=== PATIENT | male | born 1990 | race Caucasian/White ===

== ENCOUNTER 2023-09-24 20:59 | Emergency (ER) | payer BC, OTHER ==
[2023-09-24 21:08] VITALS: TEMP 96.9; O2SAT 95
[2023-09-24] MEDS ORDERED: TORAdol 30 mg Injection ONE (21:28)
[2023-09-24] MEDS ORDERED: Augmentin 875-125 Tablet ONE (21:29)
[2023-09-24] MEDS: Augmentin 875-125 Tablet PO ONE (21:30)
[2023-09-24] MEDS: TORAdol 30 mg Injection IM ONE (21:30)
--- NOTE | 2023-09-24 22:08 | ERPHSYRPT ---
- History of Present Illness Time Seen by Provider: 09/24/23 21:05 Source: patient Exam Limitations: no limitations Patient Subjective Stated Complaint: Cut middle and ring finger with table saw while drinking. Triage Nursing Assessment: Pt arrived with laceration to right middle and ring finger. States was operating table saw around 2029 when he cut his fingers. Admitted to drinking "lots of alcohol" ( BEER). Physician History: Patient is a 32yo male presents to ED for evaluation of laceration to rt. 3rd and 4th digit. Patient reports that he lacerated his fingers while working on a table saw. Injury occurred just prior to arrival. No other injuries reported. Pain described as an ache that is well localized. No radiation Pain worse with movement and palpation. Pain improves with rest. Tetanus is UTD per patient. Patient reports that he was "drinking" ETOH. Patient otherwise feels well. He has no other c/o at this time. Timing/Duration: today Severity: moderate Modifying Factors: Improves With: nothing Associated Symptoms: denies symptoms Allergies/Adverse Reactions: No Known Drug Allergies Allergy (Unverified 09/24/23 21:21) Home Medications: ALPRAZolam [Alprazolam] 1 mg PO DAILY 09/24/23 [History] Nebivolol HCl 5 MG [Bystolic 5 MG] 1 tab PO DAILY 09/24/23 [History] Hx Tetanus, Diphtheria Vaccination/Date Given: Yes (6 years ago) Hx Influenza Vaccination/Date Given: No Hx Pneumococcal Vaccination/Date Given: No Immunizations Up to Date: No Travel Risk - International Travel Have you traveled outside of the country in past 3 weeks: No - Coronavirus Screening Are you exhibiting any of the following symptoms?: No Close contact with a COVID-19 positive Pt in past 14-21 Days: No - Vaccine Status Have you recieved a Covid-19 vaccination: No - Review of Systems Constitutional: No Symptoms, No Fever, No Chills Eyes: No Symptoms Ears, Nose, & Throat: No Symptoms Respiratory: No Symptoms, No Cough, No Dyspnea Cardiac: No Symptoms, No Chest Pain, No Edema, No Syncope Abdominal/Gastrointestinal: No Symptoms, No Abdominal Pain, No Nausea, No Vomiting, No Diarrhea Genitourinary Symptoms: No Symptoms, No Dysuria Musculoskeletal: No Symptoms, No Back Pain, No Neck Pain Skin: No Symptoms, No Rash Neurological: No Symptoms, No Dizziness, No Focal Weakness, No Sensory Changes Psychological: No Symptoms Endocrine: No Symptoms Hematologic/Lymphatic: No Symptoms Immunological/Allergic: No Symptoms All Other Systems: Reviewed and Negative - Past Medical History Pertinent Past Medical History: Yes Cardiac History: Hypertension Psycho-Social History: Anxiety - Past Surgical History Past Surgical History: No - Social History Smoking Status: Never smoker Exposure to second hand smoke: No Drug Use: none Patient Lives Alone: No - Nursing Vital Signs Nursing Vital Signs: Initial Vital Signs Temperature 96.9 F 09/24/23 21:05 Pulse Rate 83 09/24/23 21:05 Respiratory Rate 22 09/24/23 21:05 Blood Pressure 158/99 09/24/23 21:05 O2 Sat by Pulse Oximetry 95 09/24/23 21:05 Pain Scale Pain Intensity 7 - Physical Exam General Appearance: no apparent distress, alert Eye Exam: PERRL/EOMI, eyes nml inspection Ears, Nose, Throat Exam: normal ENT inspection, TMs normal, pharynx normal, moist mucous membranes Neck Exam: normal inspection, non-tender, supple, full range of motion Respiratory Exam: normal breath sounds, lungs clear, airway intact, No respiratory distress Cardiovascular Exam: regular rate/rhythm, normal heart sounds, normal peripheral pulses Gastrointestinal/Abdomen Exam: soft, normal bowel sounds, No tenderness, No mass Back Exam: normal inspection, normal range of motion, No CVA tenderness, No vertebral tenderness Extremity Exam: normal inspection, normal range of motion, pelvis stable, swelling (The fourth digit has a 3.2 cm long laceration on the lateral aspect from the anatomic position. There appears to be exposed ligament and tendon. However extensor and flexor function appears to be intact. The involved digit is neurovascular tact distally compartments are soft cap refill less than ), tenderness (The third digit has a 2.3 cm laceration involving the lateral nail fold no involvement of the nail plate or nailbed), other Neurologic Exam: alert, oriented x 3, cooperative, normal mood/affect, nml cerebellar function, nml station & gait, sensation nml, No motor deficits Skin Exam: normal color, warm, dry, No rash Lymphatic Exam: No adenopathy SpO2 Interpretation: normal SpO2: 95 O2 Delivery: Room Air Procedures - Laceration/Wound Repair Right Finger Time of Procedure: 23:02 Wound Location: Right, hand Wound Length (cm): 5.5 Wound's Depth, Shape: irregular Wound Explored: contaminated Irrigated: Yes Hibiclens Prep: Yes Anesthesia: 1% Lidocaine Volume Anesthetic (ccs): 6 Wound Debrided: minimal (Debridement of nonviable superficial epidermis) Wound Repaired With: sutures Suture Size/Type: 5-0, ethilon Number of Sutures: 11 Layer Closure?: No Sterile Dressing Applied?: Yes Splint Applied?: Yes Type of Splint Applied: AlumaFoam Sling Applied?: Yes - Course Nursing assessment & vital signs reviewed: Yes - Radiology Exams Right Hand X-ray Interpretation: Interpreted by me (No fracture or dislocation. St swelling at 3rd and 4th digit. ) Ordered Tests: Active Orders 24 hr Category Date Time Status HAND (MINIMUM 3 VIEWS) Stat Exams 09/24/23 21:11 Taken Medication Summary Discontinued Medications Generic Name Dose Route Start Last Admin Trade Name Freq PRN Reason Stop Dose Admin Amoxicillin/Clavulanate Potassium 875 mg 09/24/23 21:15 09/24/23 21:30 Amox Tr/Potassium Clavulanate 875 Mg Tablet PO 09/24/23 21:16 875 mg STAT ONE Administration Amoxicillin/Clavulanate Potassium Confirm 09/24/23 21:29 Amox Tr/Potassium Clavulanate 875 Mg Tablet Administered 09/24/23 21:30 Dose 875 mg .ROUTE .STK-MED ONE Ketorolac Tromethamine 30 mg 09/24/23 21:15 09/24/23 21:30 Ketorolac Tromethamine 30 Mg/Ml Inj IM 09/24/23 21:16 30 mg STAT ONE Administration Ketorolac Tromethamine Confirm 09/24/23 21:28 Ketorolac Tromethamine 30 Mg/Ml Inj Administered 09/24/23 21:29 Dose 30 mg .ROUTE .STK-MED ONE - Progress Progress: improved Progress Note: 32-year-old male presents to our ED for evaluation and treatment of laceration to his right third and fourth digit. Patient was working on a table saw and injured his hand. Patient has a 3.2 cm laceration at the fourth digit lateral aspect and a 2.3 cm laceration of the tip of the long finger. No other injuries reported. X-rays completed. No fracture dislocations. Soft tissue swelling observed on imaging study. Imaging studies were read by Dr. Saenz. Patient is involved digits are neurovascular tact distally. Compartments are soft cap refill less than 2 seconds. Patient received pain medication in the form of Toradol and local anesthesia via lidocaine. Patient received oral antibiotic, Augmentin. A prescription for the same was forwarded to patient's pharmacy. Patient referred to hand surgery for further evaluation and treatment as there was exposed tendon and some ligament exposed as well. However there appears to be intact flexor and extensor function. Lacerations were closed using 5-0 Ethilon. Patient received 6 simple interrupted sutures to close the wound on the long finger and 5 simple interrupted sutures to close the wound on the fourth/ring finger. Both digits were neurovascular tact distally post procedure. Patient tolerated procedure well. No intra or postprocedural complications. at bedside. They voiced no other complaints or concerns at this time. They agree to follow-up with a hand surgeon within 48 hours for reevaluation. Portions of this note were created with voice recognition technology. There may be grammatical, spelling, punctuation or sound alike errors Complexity problems addressed is moderate acute complicated No critical care time Complexity of data reviewed and analyzed is moderate. Dr. Saenz independently reviewed the x-ray of the involved hand. No fracture dislocation observed. Soft tissue swelling observed. Risk of complication and a risk of morbidity/mortality of patient management is moderate. A prescription for Augmentin forwarded to patient's pharmacy. Vital stable. Time spent to discharge patient is approximately 15 minutes. Plan of care established for shared decision making. No social determinants of health present impede follow-up. Portions of this note were created with voice recognition technology. There may be grammatical, spelling, punctuation or sound alike errors 09/24/23 23:[address] Silvia García, hand surgeon for follow up. Patient to follow-up with hand surgeon within 48 hours 09/24/23 23:15 The prescription for Toradol was also forwarded to patient's pharmacy. 09/24/23 23:31 Counseled pt/family regarding: diagnosis, need for follow-up, rad results - Departure Departure Disposition: Home Clinical Impression: Finger laceration Condition: Stable Critical Care Time: No Referrals: MURIEL PEREZ MD [Primary Care Provider] - Follow up/PCP as directed SILVIA GARCÍA [NON-STAFF PHY W/O PRIVILEGES] - Follow up/PCP as directed Additional Instructions: Please follow-up with Dr.Douglas Leilani García MD (hand surgeon) within 48 hours for reevaluation. Your fingers suffered significant injury including exposed ligament and tendon. This will require a hand surgeon evaluation and possible revision of repair performed in the emergency department. Discharge/Care Plan QUANG KEEN was seen on 09/24/23 in the Emergency Room. The patient was counseled regarding Diagnosis,Lab results, Imaging studies, need for follow up and when to return to the Emergency Room. Prescriptions given: Discharge Note I have spoken with the patient and/or caregivers. I have explained the patient's condition, diagnosis and treatment plan based on the information available to me at this time. I have answered the patient's and/or caregiver's questions and addressed any concerns. The patient and/or caregivers have as good understanding of the patient's diagnosis, condition and treatment plan as can be expected at this point. The vital signs have been stable. The patient's condition is stable and appropriate for discharge from the emergency department. The patient will pursue further outpatient evaluation with the primary care physician or other designated or consulting physician as outlined in the discharge instructions. The patient and/or caregivers are agreeable to this plan of care and follow-up instructions have been explained in detail. The patient and/or caregivers have received these instruction. The patient/and or caregivers are aware that any significant change in condition or worsening of symptoms should prompt an immediate return to this or the closest emergency department or call 911. Prescriptions: Amox Tr/Potass Clav. 875 mg [Augmentin 875-125 Tablet] 875 mg PO BID 7 Days #14 tablet Ketorolac Trometh 10 mg Tab [TORAdol 10 MG TABLET] 10 mg PO TID 5 Days #15 tablet
[2023-09-24 23:13] VITALS: BP 120/80; PULSE 81; RESP 20
--- NOTE | 2023-09-25 08:43 | XRAY ---
Indication: Laceration. Pain. Comparison: None 3 view right hand demonstrates soft tissue swelling/laceration tip 3rd finger. No other bony, articular, or soft tissue abnormalities.
== END 2023-09-24 23:40 | disposition home or self-care (01) ==
LOC: ED 20:59
DX: S61.212A Laceration without foreign body of right middle finger without damage to nail, initial encounter (principal); S61.214A Laceration without foreign body of right ring finger without damage to nail, initial encounter; W31.2XXA Contact with powered woodworking and forming machines, initial encounter; I10 Essential (primary) hypertension; Z79.899 Other long term (current) drug therapy; Z28.310 Unvaccinated for COVID-19
CPT/HCPCS: 12002; 73130; 96372; 99283; J1885; A9270-GY